=== PATIENT | male | born 1955 | race African-American/Black ===

== ENCOUNTER 2019-04-08 18:24 | Emergency (ER) | payer MEDICAID ==
[~2019-04-08] VITALS: Ht 157.5 cm; Wt 72.6 kg
[~2019-04-08 18:24] MED LIST: FUROSEMIDE20 M1 ORAL; GUAIFENESIN-CO118 M1 ORAL; LIALDA1.2 GM ORAL; LOSARTAN POTASS25 MG ORAL; MINERAL OIL25 ML TP; NORCO 5-325 TA1 EACH ORAL; SIMVASTATIN40 MG ORAL; SORBITOL 70%30 ML ORAL; TRAZODONE HCL50 MG ORAL; VITAMIN D1000 UNI1 ORAL
[2019-04-08 18:33] VITALS: BP 98/59
--- NOTE | 2019-04-08 18:33 | NUR ---
ED Nurse Note: pt speaks full sentences easily no cough noted in ed. pt with exp wheezes and diminished bibasilar. 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 resp aware to administer hhn. pt denies cp, n/v at this time.
[2019-04-08] MEDS ORDERED: Ipratropium 0.02% Inh Soln 2.5ml UD HHN ONE (18:45)
--- NOTE | 2019-04-08 18:51 | NUR ---
ED Nurse Note: labs sent resp therapist here for hhn
[2019-04-08] MEDS: Albuterol ud Inhalation HHN SCH ×2 (18:53→18:58)
--- NOTE | 2019-04-08 18:53 | NUR ---
RESPIRATORY NOTE: MEDICATION ORDER WAS CLARIFIED WITH DR. CARDONA AND HE ORDERED 2.5 MG ALBUTEROL AND 0.5 MG ATROVENT ONLY.
[2019-04-08 19:01] LABS: EOSINOPHILS % (AUTO) 3.2 % (0.0-3.0); HEMATOCRIT 35.3 % (42.0-52.0); HEMOGLOBIN 11.6 G/DL (14.2-18.0); LYMPHOCYTES % (AUTO) 18.8 % (20.0-45.0); MEAN CORPUSCULAR VOLUME 91 FL (80-99); MONOCYTES % (AUTO) 6.5 % (1.0-10.0); NEUTROPHILS % (AUTO) 70.5 % (45.0-75.0); PLATELET COUNT 204 K/UL (150-450); RED CELL DISTRIBUTION WIDTH 13.3 % (11.6-14.8); WHITE BLOOD COUNT 11.3 K/UL (4.8-10.8)
[2019-04-08 19:05] VITALS: BP 107/61
--- NOTE | 2019-04-08 19:05 | NUR ---
ED Nurse Note: Patient resting comfortably with no s/s of acute distress. Vital signs stable.
--- NOTE | 2019-04-08 19:08 | NUR ---
Sheldon contacted, spoke with Tanya-all necessary information given and requested snap shot of the records with EKG.
--- NOTE | 2019-04-08 19:29 | Emergency Room Report ---
History of Present Illness General Chief Complaint: Upper Respiratory Illness Source: Patient Present Illness HPI Patient is a 63-year-old male sent in from nursing facility after increased cough and chest discomfort. Patient had some prior history of asthma. He had been noted to have increased nonproductive cough. Patient reports having prior history of CVA in the past. He had acute onset of symptoms earlier in the day at his nursing facility. He had previously been on inhalers. He denies any prior cardiac history.Patient states that he has not been having any vomiting or diarrhea. Allergies: Coded Allergies: No Known Allergies (Unverified , 04/08/19) Patient History Past Medical History: see triage record Reviewed Nursing Documentation: PMH: Agreed; PSxH: Agreed Nursing Documentation-PMH Past Medical History: No History, Except For Hx Cardiac Problems: Yes - HF, Hypokalemia, Crohn's disease, Gout, Anemia Hx Hypertension: Yes - Osteoporosis History Of Psychiatric Problem: Yes - Depression Review of Systems All Other Systems: negative except mentioned in HPI Physical Exam Vital Signs Date Time Temp Pulse Resp B/P (MAP) Pulse Ox O2 Delivery O2 Flow Rate FiO2 04/08/19 18:13 98.1 110 18 99/63 (75) 96 Room Air 04/08/19 18:53 21 General Appearance: no apparent distress, alert, GCS 15, Chronically Ill Neck: full range of motion Respiratory: wheezing Cardiovascular #1: tachycardia Gastrointestinal: normal inspection, non tender, soft Musculoskeletal: normal inspection, back normal, digits/nails normal Neurologic: normal inspection, alert, oriented x3, responsive, rn cardiac rehab III-XII nml as tested Psychiatric: normal inspection Skin: normal inspection Medical Decision Making Diagnostic Impression: Primary Impression: Chest pain Additional Impressions: Lactic acidosis Ascites Chronic steroid use Asthma ER Course Presented for chest pain. Differential diagnosis include was not limited to pneumonia, myocardial infarction, pulmonary embolism, pneumothorax among others. Because of complexity of patient's case laboratory testing and imaging studies were ordered. EKG interpreted by me showed sinus tachycardia . Patient was noted to have some lactic acidosis. Laboratory testing showed some mild elevation of his anion gap. He patient was noted to have some baseline hypotension. Per [facility] records patient had reportedly had a normal ejection fraction. EKG interpreted by ks showed sinus tachycardia without acute ST or T wave changes. Labs Test 04/08/19 18:40 04/08/19 20:04/08/19 21:17 White Blood Count 11.3 K/UL (4.8-10.8) Red Blood Count 3.90 M/UL (4.70-6.10) Hemoglobin 11.6 G/DL (14.2-18.0) Hematocrit 35.3 % (42.0-52.0) Mean Corpuscular Volume 91 FL (80-99) Mean Corpuscular Hemoglobin 29.6 PG (27.0-31.0) Mean Corpuscular Hemoglobin Concent 32.8 G/DL (32.0-36.0) Red Cell Distribution Width 13.3 % (11.6-14.8) Platelet Count 204 K/UL (150-450) Mean Platelet Volume 5.8 FL (6.5-10.1) Neutrophils (%) (Auto) 70.5 % (45.0-75.0) Lymphocytes (%) (Auto) 18.8 % (20.0-45.0) Monocytes (%) (Auto) 6.5 % (1.0-10.0) Eosinophils (%) (Auto) 3.2 % (0.0-3.0) Basophils (%) (Auto) 1.0 % (0.0-2.0) D-Dimer 0.48 mg/L FEU (0.00-0.49) Sodium Level 143 MMOL/L (136-145) Potassium Level 3.4 MMOL/L (3.5-5.1) Chloride Level 102 MMOL/L (98-107) Carbon Dioxide Level 23 MMOL/L (21-32) Anion Gap 18 mmol/L (5-15) Blood Urea Nitrogen 12 mg/dL (7-18) Creatinine 1.0 MG/DL (0.55-1.30) Estimat Glomerular Filtration Rate > 60 mL/min (>60) Glucose Level 120 MG/DL (74-106) Calcium Level 9.6 MG/DL (8.5-10.1) Total Bilirubin 0.2 MG/DL (0.2-1.0) Aspartate Amino Transf (AST/SGOT) 18 U/L (15-37) Alanine Aminotransferase (ALT/SGPT) 16 U/L (12-78) Alkaline Phosphatase 111 U/L (46-116) Total Creatine Kinase 135 U/L (26-308) Creatine Kinase MB 1.6 NG/ML (0.0-3.6) Creatine Kinase MB Relative Index 1.1 Troponin I 0.000 ng/mL (0.000-0.056) Pro-B-Type Natriuretic Peptide 76 pg/mL (0-125) Total Protein 7.3 G/DL (6.4-8.2) Albumin 3.0 G/DL (3.4-5.0) Globulin 4.3 g/dL Albumin/Globulin Ratio 0.7 (1.0-2.7) Lipase 158 U/L (73-393) Lactic Acid Level 5.40 mmol/L (0.4-2.0) Urine Color Yellow Urine Appearance Clear Urine pH 5 (4.5-8.0) Urine Specific [place] 1.010 (1.005-1.035) Urine Protein 1+ (NEGATIVE) Urine Glucose (UA) Negative (NEGATIVE) Urine Ketones Negative (NEGATIVE) Urine Blood Negative (NEGATIVE) Urine Nitrite Negative (NEGATIVE) Urine Bilirubin Negative (NEGATIVE) Urine Urobilinogen Normal MG/DL (0.0-1.0) Urine Leukocyte Esterase Negative (NEGATIVE) EKG Diagnostic Results Rate: tachycardiac Rhythm: NSR ST Segments: no acute changes Last Vital Signs Date Time Temp Pulse Resp B/P (MAP) Pulse Ox O2 Delivery O2 Flow Rate FiO2 04/08/19 19:03 103 12 100 Room Air 21 04/08/19 18:33 98/59 04/08/19 18:13 98.1 Status: improved Disposition: [facility] Condition: Serious Referrals: Jef Skelton DO (PCP) Mark Antoine MD Apr 08, 2019 19:29
[2019-04-08] MEDS ORDERED: Isovue-300 100ml vial INJ PRN (19:30)
[2019-04-08 19:34] LABS: ANION GAP 18 mmol/L (5-15); BLOOD UREA NITROGEN 12 mg/dL (7-18); CALCIUM 9.6 MG/DL (8.5-10.1); CARBON DIOXIDE 23 MMOL/L (21-32); CHLORIDE 102 MMOL/L (98-107); POTASSIUM 3.4 MMOL/L (3.5-5.1); SODIUM 143 MMOL/L (136-145)
[2019-04-08 19:47] LABS: ALANINE AMINOTRANSFERASE 16 U/L (12-78); ALBUMIN/GLOBULIN RATIO 0.7 (1.0-2.7); ALKALINE PHOSPHATASE 111 U/L (46-116); ASPARTATE AMINO TRANSFERASE 18 U/L (15-37); BILIRUBIN,TOTAL 0.2 MG/DL (0.2-1.0); CKMB 1.6 NG/ML (0.0-3.6); CREATINE KINASE 135 U/L (26-308)
--- NOTE | 2019-04-08 19:57 | NUR ---
ED Nurse Note: Lactic reflex drawn.
--- NOTE | 2019-04-08 20:01 | NUR ---
ED Nurse Note: Patient going down for CT.
[2019-04-08] MEDS ORDERED: Hydrocortisone 100mg Inj IV ONE (21:00)
[2019-04-08] MEDS ORDERED: cefTRIAXone 1 GM in NS 55 ML IVPB ONE ×2 (21:00→21:45)
[2019-04-08] MEDS ORDERED: Thiamine HCl 100 MG in D5W 55 ML IVPB ONE (21:00)
[2019-04-08 21:31] LABS: APPEARANCE,URINE CLEAR; BILIRUBIN, URINE NEGATIVE (NEGATIVE); GLUCOSE, URINE (UA) NEGATIVE (NEGATIVE); KETONES,URINE NEGATIVE (NEGATIVE); LEUKOCYTE ESTERASE ,URINE NEGATIVE (NEGATIVE); NITRITE,URINE NEGATIVE (NEGATIVE); PH,URINE 5 (4.5-8.0); PROTEIN,URINE 1+ (NEGATIVE); UROBILINOGEN,URINE NORMAL MG/DL (0.0-1.0)
[2019-04-08 21:32] LABS: COLOR,URINE YELLOW
[2019-04-09 00:10] VITALS: BP 117/80
[2019-04-09 01:05] VITALS: BP 109/70
[2019-04-09 01:24] VITALS: BP 109/70
--- NOTE | 2019-04-09 01:24 | NUR ---
ED Nurse Note: Patient cleared for transfer, report rendered to EMT upon arrival. Patient is in stable condition and prepared to depart will all belongings..
--- NOTE | 2019-04-09 01:38 | NUR ---
ED Nurse Note: Called to give report to Dominic FUENTES. Gave report and then nurse stated that patient was not accepted by Dr. Manriquez. BLS has already left with patient. Charge nurse informed.
--- NOTE | 2019-04-09 10:12 | Diagnostic Imaging Report ---
Indication: Chest and abdominal pain Technique: Continuous helical transaxial imaging of the chest, abdomen and pelvis was obtained from the lung bases to the pubic symphysis during intravenous contrast administration. Multiple phases of enhancement obtained. Coronal 2-D reformats were also obtained. Study obtained in a Siemens sensation [address] Automatic Exposure Control was utilized. Total Dose length Product (DLP): 1249.[address] Dose Index Volume (CTDIvol): 16.29,15.32 mGy Comparison: 04/08/2019 Findings: CT CHEST: Lungs are essentially clear. Pulmonary artery appears well opacified although this was not performed as a CT angiogram. Aorta is normal in caliber. The heart is enlarged. Mild posterior basilar reticular densities likely atelectasis noted. No adenopathy, pleural effusion or pericardial effusion identified. Gynecomastia noted. CT abdomen pelvis: There is mild perinephric stranding which is nonspecific. Gallbladder is contracted. The liver and spleen, pancreas, adrenal glands appear unremarkable. Bowel gas pattern is nonobstructive. There is no free fluid. Mild calcification of aorta demonstrated. There is narrowing of intervertebral discs and accompanying endplate osteophyte formation. Hypertrophied facet joints also demonstrated.. Prominent bony protuberance projecting off the right ileum noted. This is partially fused with the anterior part of the right proximal femur. Similar findings to a lesser extent noted on the left side as well. Moderate osteoarthrosis of both hips demonstrated. IMPRESSION: No acute findings identified in the chest abdomen or pelvis. Atherosclerotic disease. Gynecomastia Mild perinephric stranding nonspecific Iliac/femoral fusion on the right via soft tissue ossification. Degenerative changes of the spine. Other incidental findings as above The CT scanner at [facility] is accredited by the [employer] and the scans are performed using dose optimization techniques as appropriate to a performed exam including Automatic Exposure control.
--- NOTE | 2019-04-09 12:44 | Diagnostic Imaging Report ---
Indication: Dyspnea Comparison: 05/26/2011 A single view chest radiograph was obtained. Findings: Mild pulmonary vascular congestion suspected. Heart is enlarged. Right hemidiaphragm is elevated. Bones are osteopenic. IMPRESSION: Mild vascular congestion suspected
== END 2019-04-09 01:30 | disposition short-term general hospital (02) ==
LOC: EDBD 18:24 → EMR 19:17
DX: R07.9 Chest pain, unspecified (principal); R05 Cough; E87.2 Acidosis; R18.8 Other ascites; F19.90 Other psychoactive substance use, unspecified, uncomplicated; J45.909 Unspecified asthma, uncomplicated; Z86.73 Personal history of transient ischemic attack (TIA), and cerebral infarction without residual deficits; K50.90 Crohn's disease, unspecified, without complications; F32.9 Major depressive disorder, single episode, unspecified; M81.0 Age-related osteoporosis without current pathological fracture; R00.0 Tachycardia, unspecified
CPT/HCPCS: 36415; 71045; 71260; 74177; 80053; 81003; 82550; 82553; 83605; 83690; 83880; 84484; 85025; 85379; 87040; 93005; 94640; 94664; 96365; 96367; 96368; 96375; 99285; J0696; J1720; J7040; Q9967